=== PATIENT | male | born 1940 | race Caucasian/White ===

== ENCOUNTER 2020-11-30 23:13 | Emergency (ER) | payer OTHER, MEDICARE, SELFPAY ==
--- NOTE | 2020-11-30 00:55 | RAD_ITS ---
EXAM: XR LEFT HAND COMPLETE, 3 OR MORE VIEWS : 1940 CLINICAL INDICATION: trauma TECHNIQUE: Frontal, lateral and oblique views of the left hand. This report was created using [employer] report generation technology. COMPARISON: None. FINDINGS: BONES/JOINTS: There are mild degenerative changes with narrowing of the distal interphalangeal joints of the fourth and fifth fingers. Pression. No acute osseous abnormalities. No subluxation. Normal alignment. No sclerotic or destructive changes observed. SOFT TISSUES: Unremarkable. No soft tissue swelling or gas. No radiopaque foreign body. RAD/Hand Min 3 Views IMPRESSION: Mild degenerative changes with narrowing of the distal interphalangeal joints of the fourth and fifth fingers. at 0146 Reported and signed by: Eduard Hong MD Electronically Signed: Eduard Hong MD at 1:45 EDT Tel , Service support ,
[2020-11-30 23:15] VITALS: PULSE 75; RESP 15; TEMP 36.1; O2SAT 97; BMI 33.6
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
[2020-11-30 23:25] VITALS: BP 156/90
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
[2020-11-30] MEDS: 0.9% Normal Saline 1,000 ML 1000 ML IV (23:30)
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
[2020-12-01 00:28] LABS: ALB/GLOB Ratio 1.1 RATIO (0.9-2.4); AST(SGOT) 35 U/L (15-37); Alanine Aminotransfer ALT/SGPT 29 U/L (16-61); Albumin, Serum 3.8 g/dL (3.2-5.0); Alkaline Phosphatase 45 U/L (45-117); Anion Gap 6 (5-15); BUN 10 mg/dL (7-18); BUN/Creat Ratio 8.3 RATIO (10-20); Calcium,Total 9.8 mg/dL (8.5-10.1); Chloride 107 mmol/L (98-107); EST Glomerular Filtration Rate 62 mL/min (>60); Est Glom Filt Rate - Afr Amer 75 mL/min (>60); Globulin 3.5 g/dL (2.2-4.2); Glucose 117 mg/dL (74-106); Potassium 3.8 mmol/L (3.5-5.1); Protein, Total 7.3 g/dL (6.4-8.2); Sodium Level 142 mmol/L (136-145); Troponin-I HS 27 pg/mL (3.0-78.0)
[2020-12-01] MEDS: Ketorolac 15 MG/ML Vial IV (00:54)
[2020-12-01 02:51] VITALS: BP 147/65; PULSE 78; RESP 18; O2SAT 99
== END 2020-12-01 02:52 | disposition home or self-care (01) ==
LOC: ED 12-01 00:49
PROVIDERS: Emergency Provider Emergency Medicine
DX: S30.1XXA Contusion of abdominal wall, initial encounter (principal); S20.219A Contusion of unspecified front wall of thorax, initial encounter; S60.222A Contusion of left hand, initial encounter; S60.211A Contusion of right wrist, initial encounter; E11.9 Type 2 diabetes mellitus without complications; E78.5 Hyperlipidemia, unspecified; I10 Essential (primary) hypertension; Z79.02 Long term (current) use of antithrombotics/antiplatelets; Z79.82 Long term (current) use of aspirin; Z79.899 Other long term (current) drug therapy; Z79.84 Long term (current) use of oral hypoglycemic drugs; V59.40XA Driver of pick-up truck or van injured in collision with unspecified motor vehicles in traffic accident, initial encounter
CPT/HCPCS: 70450; 71260; 72125; 73110; 73130; 74177; 80053; 84484; 93005; 96361; 96374; 99285; Q9967; A4216